=== PATIENT | male | born 1945 | race Caucasian/White ===

== ENCOUNTER 2018-10-24 10:08 | Emergency (ER) | payer MEDICARE ==
[~2018-10-24] VITALS: Ht 177.8 cm; Wt 97.5 kg
[~2018-10-24 10:08] MED LIST: ASPIRIN81 MG PO; ESIDRIX25 MG PO; K DUR10 MEQ PO; KLOR-CON 1010 MEQ PO; LISINOPRIL10 MG PO; METFORMIN HCL1000 MG PO; MULTIVITAMINS1 EAC7 PO; SIMVASTATIN20 MG PO; TAMSULOSIN HCL0.4 MG PO
--- OUTSIDE RECORDS SUMMARY | 2018-10-24 10:11 | XMS REPORT | Summary of Care ---
Author Author [facility] Organization [facility] Address Unknown Phone Unavailable Encounter JARRELL Dacosta(ROLAND) [id number] Date(s): 10/10/16 - 10/10/16 [facility] [address] [place] [address]- [phone] Discharge Diagnosis: Recurrent ventral hernia Discharge Diagnosis: Scabies exposure Discharge Diagnosis: Acute constipation Discharge Disposition: Home or Self Care Attending Physician: Abdelrahman Maldonado MD Vital Signs Most recent to 1 2 oldest [Reference Range]: Height 177.8 cm (10/10/16 12:52 AM) Temperature Oral 98.9 DegF 99.0 DegF [96.4-99.1 DegF] (10/10/16 5:04 AM) (10/10/16 12:52 AM) Blood Pressure 110/68 mmHg 102/69 mmHg [90-140/60-90 mmHg] (10/10/16 5:04 AM) (10/10/16 12:52 AM) Respiratory Rate 18 BRMIN 18 BRMIN [14-20 BRMIN] (10/10/16 5:04 AM) (10/10/16 12:52 AM) Peripheral Pulse 90 bpm 100 bpm Rate [60-100 bpm] (10/10/16 5:04 AM) (10/10/16 12:52 AM) Weight 95.455 kg (10/10/16 12:52 AM) Body Mass Index 30.2 m2 (10/10/16 12:52 AM) Problem List Condition Effective Dates Status Health Status Informant Diabetes(Confirmed) Active HTN (hypertension), Active malignant(Confirmed) Obesity(Confirmed) Active Allergies, Adverse Reactions, Alerts Substance Reaction Severity Status NKDA Active Medications Colace 100 mg oral capsule 100 mg=1 cap, PO, BID, PRN Constipation, # 60 cap, 0 Refill(s), Pharmacy: [facility]/ph armacy #[id number] Start Date: 10/10/16 Status: Ordered permethrin topical 5% cream 1 appl, TOP, ONCE, Bathe then apply head to feet and under nails. 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, Duration: 30 day, Stop date: 11/09/16 1:52: 00 CDT Notes: (Same as: BD Posiflush) Start Date: 10/10/16 Stop Date: 10/10/16 Status: Discontinued Results ELECTROLYTES Most recent to 1 oldest [Reference Range]: Sodium Lvl [135-145 134 mEq/L mEq/L] *LOW* (10/10/16 3:27 AM) Potassium Lvl 3.8 mEq/L [3.5-5.1 mEq/L] (10/10/16 3:27 AM) Chloride Lvl [95-109 97 mEq/L mEq/L] (10/10/16 3:27 AM) CO2 [24-32 mEq/L] 24 mEq/L (10/10/16 3:27 AM) AGAP [10.0-20.0 16.8 mEq/L mEq/L] (10/10/16 3:27 AM) CHEM PANEL Most recent to 1 oldest [Reference Range]: Creatinine Lvl 1.30 mg/dL [0.50-1.40 mg/dL] (10/10/16 3:27 AM) eGFR 55 mL/min/1.73m2 1 *NA* (10/10/16 3:27 AM) BUN [7-22 mg/dL] 15 mg/dL (10/10/16 3:27 AM) B/C Ratio [6-25] 12 (10/10/16 3:27 AM) Glucose Lvl [70-99 334 mg/dL mg/dL] *HI* (10/10/16 3:27 AM) Total Protein 8.0 g/dL [6.4-8.4 g/dL] (10/10/16 3:27 AM) Albumin Lvl [3.5-5.0 2.8 g/dL g/dL] *LOW* (10/10/16 3:27 AM) Globulin [2.7-4.2 5.2 g/dL g/dL] *HI* (10/10/16 3:27 AM) A/G Ratio [0.7-1.6] 0.5 *LOW* (10/10/16 3:27 AM) Calcium Lvl 8.6 mg/dL [8.5-10.5 mg/dL] (10/10/16 3:27 AM) ALT [0-65 unit/L] 31 unit/L (10/10/16 3:27 AM) AST [0-37 unit/L] 25 unit/L (10/10/16 3:27 AM) Alk Phos [39-136 210 unit/L unit/L] *HI* (10/10/16 3:27 AM) Bili Total [0.2-1.3 0.6 mg/dL mg/dL] (10/10/16 3:27 AM) Amylase Lvl [25-115 34 unit/L unit/L] (10/10/16 3:27 AM) Lipase Lvl [73-393 161 unit/L unit/L] (10/10/16 3:27 AM) 1Result Comment: The eGFR is calculated using the CKD-EPI formula. In most young, healthy individuals the eGFR will be >90 mL/min/1.73m2. The eGFR declines with age. An eGFR of 60-89 may be normal in some populations, particularly the elderly, for whom the CKD-EPI formula has not been extensively validated. Use of the eGFR is not recommended in the following populations: Individuals with unstable creatinine concentrations, including patients and those with serious co-morbid conditions. Patients with extremes in muscle mass or diet. The data above are obtained from the National Kidney Disease Education Program ( NKDEP) which additionally recommends that when the eGFR is used in patients with extremes of body mass index for purposes of drug dosing, the eGFR should be mul tiplied by the estimated BMI. CARDIAC ENZYMES Most recent to 1 oldest [Reference Range]: Troponin-I <0.02 ng/mL [0.00-0.40 ng/mL] (2/21/17 3:27 AM) URINE AND STOOL Most recent to 1 oldest [Reference Range]: UA Turbidity [Clear] Clear (10/10/16 3:46 AM) UA Color Meena *NA* (10/10/16 3:46 AM) UA pH [5.0-8.0] 5.0 (10/10/16 3:46 AM) UA Spec Grav 1.027 [<=1.030] (10/10/16 3:46 AM) UA Glucose [Negative 50 mg/dL mg/dL] *ABN* (10/10/16 3:46 AM) UA Blood [Negative] Small *ABN* (10/10/16 3:46 AM) UA Ketones [Negative Negative mg/dL mg/dL] *NA* (10/10/16 3:46 AM) UA Protein [Negative Negative mg/dL mg/dL] (10/10/16 3:46 AM) UA Urobilinogen 4.0 mg/dL [0.1-1.0 mg/dL] *HI* (10/10/16 3:46 AM) UA Bili [Negative] Negative *NA* (10/10/16 3:46 AM) UA Leuk Est Negative [Negative] (10/10/16 3:46 AM) UA Nitrite Negative [Negative] (10/10/16 3:46 AM) UA WBC [0-5 /HPF] 5 /HPF (10/10/16 3:46 AM) UA RBC [0-2 /HPF] 13 /HPF *HI* (10/10/16 3:46 AM) UA Sq Epi [Few /LPF] Occasional /LPF *NA* (10/10/16 3:46 AM) HEMATOLOGY Most recent to 1 oldest [Reference Range]: WBC [3.7-10.4 K/CMM] 7.6 K/CMM (10/10/16 3:27 AM) RBC [4.70-6.10 4.40 M/CMM M/CMM] *LOW* (10/10/16 3:27 AM) Hgb [14.0-18.0 g/dL] 12.3 g/dL *LOW* (10/10/16 3:27 AM) Hct [42.0-54.0 %] 37.3 % *LOW* (10/10/16 3:27 AM) MCV [80.0-94.0 fL] 84.8 fL (10/10/16 3:27 AM) MCH [27.0-31.0 pg] 27.9 pg (10/10/16 3:27 AM) MCHC [32.0-36.0 32.9 g/dL g/dL] (10/10/16 3:27 AM) RDW [11.5-14.5 %] 16.5 % *HI* (10/10/16 3:27 AM) Platelet [133-450 215 K/CMM K/CMM] (10/10/16 3:27 AM) MPV [7.4-10.4 fL] 7.5 fL (10/10/16 3:27 AM) Segs [45.0-75.0 %] 58.9 % (10/10/16 3:27 AM) Lymphocytes 28.5 % [20.0-40.0 %] (10/10/16 3:27 AM) Monocytes [2.0-12.0 11.4 % %] (10/10/16 3:27 AM) Eosinophils [0.0-4.0 0.5 % %] (10/10/16 3:27 AM) Basophils [0.0-1.0 0.7 % %] (10/10/16 3:27 AM) Segs-Bands # 4.5 K/CMM [1.5-8.1 K/CMM] (10/10/16 3:27 AM) Lymphocytes # 2.2 K/CMM [1.0-5.5 K/CMM] (10/10/16 3:27 AM) Monocytes # [0.0-0.8 0.9 K/CMM K/CMM] *HI* (10/10/16 3:27 AM) Basophils # [0.0-0.2 0.1 K/CMM K/CMM] (10/10/16 3:27 AM) Immunizations No data available for this section Procedures Procedure Date Related Diagnosis Body Site Appendectomy Closed reduction of fracture of arm Tonsillectomy Social History Social History Type Response Alcohol Current, Frequency: 1-2 times per week. Smoking Status Former smoker; Started [age] age: 10.0; Exposure to Tobacco Smoke None; Other Tobacco Frequency Pateint Dips; Cigarette Smoking Last 365 Days No; Reg Smoking Cessation Counseling No Assessment and Plan No data available for this section
--- OUTSIDE RECORDS SUMMARY | 2018-10-24 10:11 | XMS REPORT | Summary of Care ---
Author Author [facility] Organization [facility] Address Unknown Phone Unavailable Encounter JARRELL Dacosta(ROLAND) [id number] Date(s): 12/13/16 - 12/13/16 [facility] [address] [place] [address]- [phone] Discharge Disposition: Home or Self Care Attending Physician: Pb Roberts MD Referring Physician: Pb Roberts MD Vital Signs 1 2 3 Most recent to oldest [Reference Range]: 177.8 cm (12/08/16 2:13 PM) Height 97.7 DegF (12/08/16 2:13 PM) Temperature Oral [96.4-99.1 DegF] 130/74 mmHg (12/13/16 10:00 AM) 97/65 mmHg (12/13/16 9:45 AM) 106/69 mmHg (12/13/16 9:30 AM) Blood Pressure [90-140/60-90 mmHg] 19 BRMIN (12/13/16 9:30 AM) 16 BRMIN (12/13/16 9:15 AM) 18 BRMIN (12/13/16 9:00 AM) Respiratory Rate [14-20 BRMIN] 92 bpm (12/08/16 2:13 PM) Peripheral Pulse Rate [60-100 bpm] 90.909 kg (12/08/16 2:13 PM) Weight 28.76 m2 (12/08/16 2:13 PM) Body Mass Index Problem List Condition Effective Dates Status Health Status Informant Diabetes(Confirmed) Active HTN (hypertension), Active malignant(Confirmed) Hypercholesteremia(C Active onfirmed) Obesity(Confirmed) Active Allergies, Adverse Reactions, Alerts Substance Reaction Severity Status NKDA Active Medications acetaminophen (ANES) Route: IV, Drug form: INJ, ONCE, Stop date: 12/13/16 8:30:00 CDT Start Date: 12/13/16 Stop Date: 12/13/16 Status: Completed albuterol-ipratropium 2.5-0.5 mg inhalation solution 3 mL, Route: NEB, Dosing Weight 90.909, kg, ONCE, STAT, Start date: 12/13/16 7:3 0:00 CDT, Stop date: 12/13/16 7:30:00 CDT Start Date: 12/13/16 Stop Date: 12/13/16 Status: Discontinued Ancef 2 gm, 100 mL, Route: IVPB, Drug form: INJ, ONCE, Dosing Weight 90.909, kg, Start date: 12/08/16 14:14:00 CDT, Duration: 1 doses or times, Stop date: 12/08/16 14 :14:00 CDT, Surgical Prophylaxis Only; For patients < 120 kg Notes: Same as: Ancef Start Date: 12/08/16 Stop Date: 12/08/16 Status: Ordered ceFAZolin (ANES) Route: IV, Drug form: INJ, ONCE, Stop date: 12/13/16 8:30:00 CDT Start Date: 12/13/16 Stop Date: 12/13/16 Status: Completed Colace 100 mg oral capsule 100 mg=1 cap, PO, BID, PRN Constipation, # 20 cap, 0 Refill(s), [id number] Start Date: 12/13/16 Status: Ordered dexamethasone (ANES) Route: IV, Drug form: INJ, ONCE, Stop date: 12/13/16 9:00:00 CDT Start Date: 12/13/16 Stop Date: 12/13/16 Status: Completed ePHEDrine (ANES) Route: IV, Drug form: INJ, ONCE, Stop date: 12/13/16 8:55:00 CDT Start Date: 12/13/16 Stop Date: 12/13/16 Status: Completed fentaNYL (ANES) Route: IV, Drug form: INJ, ONCE, Stop date: 12/13/16 8:25:00 CDT Start Date: 12/13/16 Stop Date: 12/13/16 Status: Completed glycopyrrolate (ANES) Route: IV, Drug form: INJ, ONCE, Stop date: 12/13/16 9:00:00 CDT Start Date: 12/13/16 Stop Date: 12/13/16 Status: Completed Lactated Ringers Injection IV 1000 mL 1,000 mL, Rate: 25 ml/hr, Infuse over: 40 hr, Route: IV, Dosing Weight 90.909 kg , Total Volume: 1,000, Start date: 12/13/16 7:30:00 CDT, Duration: 30 day, Stop date: 01/12/17 7:29:00 CDT Start Date: 12/13/16 Stop Date: 12/13/16 Status: Discontinued lidocaine (ANES) Route: IV, Drug form: INJ, ONCE, Stop date: 12/13/16 8:25:00 CDT Start Date: 12/13/16 Stop Date: 12/13/16 Status: Completed LR 1000 mL INJ (ANES) Route: IV, Total Volume: 1,000, Start date: 12/13/16 7:30:00 CDT, Stop date: 8:30:00 CDT Start Date: 12/13/16 Stop Date: 12/13/16 Status: Completed neostigmine (ANES) Route: IV, Drug form: INJ, ONCE, Stop date: 12/13/16 9:00:00 CDT Start Date: 12/13/16 Stop Date: 12/13/16 Status: Completed ondansetron (ANES) Route: IV, Drug form: INJ, ONCE, Stop date: 12/13/16 9:00:00 CDT Start Date: 12/13/16 Stop Date: 12/13/16 Status: Completed oxyCODONE 5 mg oral tablet 10 mg, Route: PO, Drug form: TAB, ONCE, Dosing Weight 90.909, kg, PRN Pain Score 4-6, Start date: 12/13/16 9:42:00 CDT Start Date: 12/13/16 Stop Date: 12/13/16 Status: Completed propofol (ANES) Route: IV, Drug form: INJ, ONCE, Stop date: 12/13/16 8:25:00 CDT Start Date: 12/13/16 Stop Date: 12/13/16 Status: Completed rocuronium (ANES) Route: IV, Drug form: INJ, ONCE, Stop date: 12/13/16 8:25:00 CDT Start Date: 12/13/16 Stop Date: 12/13/16 Status: Completed Tylenol with Codeine #3 oral tablet 1 tab, PO, Q6H, PRN pain, X 7 day, # 28 tab, 0 Refill(s) Start Date: 12/13/16 Stop Date: 12/20/16 Status: Ordered Results ELECTROLYTES Most recent to 1 oldest [Reference Range]: Sodium Lvl [135-145 137 mEq/L mEq/L] (12/08/16 2:28 PM) Potassium Lvl 3.7 mEq/L [3.5-5.1 mEq/L] (12/08/16 2:28 PM) Chloride Lvl [95-109 102 mEq/L mEq/L] (12/08/16 2:28 PM) CO2 [24-32 mEq/L] 25 mEq/L (12/08/16 2:28 PM) AGAP [10.0-20.0 13.7 mEq/L mEq/L] (12/08/16 2:28 PM) CHEM PANEL Most recent to 1 oldest [Reference Range]: Creatinine Lvl 1.10 mg/dL [0.50-1.40 mg/dL] (12/08/16 2:28 PM) eGFR 68 mL/min/1.73m2 1 *NA* (12/08/16 2:28 PM) BUN [7-22 mg/dL] 22 mg/dL (12/08/16 2:28 PM) B/C Ratio [6-25] 20 (12/08/16 2:28 PM) Glucose Lvl [70-99 151 mg/dL mg/dL] *HI* (12/08/16 2:28 PM) Total Protein 8.3 g/dL [6.4-8.4 g/dL] (12/08/16 2:28 PM) Albumin Lvl [3.5-5.0 3.8 g/dL g/dL] (12/08/16 2:28 PM) Globulin [2.7-4.2 4.5 g/dL g/dL] *HI* (12/08/16 2:28 PM) A/G Ratio [0.7-1.6] 0.8 (12/08/16 2:28 PM) Calcium Lvl 9.8 mg/dL [8.5-10.5 mg/dL] (12/08/16 2:28 PM) ALT [0-65 unit/L] 26 unit/L (12/08/16 2:28 PM) AST [0-37 unit/L] 21 unit/L (12/08/16 2:28 PM) Alk Phos [39-136 76 unit/L unit/L] (12/08/16 2:28 PM) Bili Total [0.2-1.3 0.5 mg/dL mg/dL] (12/08/16 2:28 PM) 1Result Comment: The eGFR is calculated using [...] be mul tiplied by the estimated BMI. HEMATOLOGY Most recent to 1 oldest [Reference Range]: WBC [3.7-10.4 K/CMM] 9.9 K/CMM (12/08/16 2:28 PM) RBC [4.70-6.10 5.21 M/CMM M/CMM] (12/08/16 2:28 PM) Hgb [14.0-18.0 g/dL] 15.0 g/dL (12/08/16 2:28 PM) Hct [42.0-54.0 %] 44.2 % (12/08/16 2:28 PM) MCV [80.0-94.0 fL] 85.0 fL (12/08/16 2:28 PM) MCH [27.0-31.0 pg] 28.8 pg (12/08/16 2:28 PM) MCHC [32.0-36.0 33.9 g/dL g/dL] (12/08/16 2:28 PM) RDW [11.5-14.5 %] 15.7 % *HI* (12/08/16 2:28 PM) Platelet [133-450 239 K/CMM K/CMM] (12/08/16 2:28 PM) MPV [7.4-10.4 fL] 7.3 fL *LOW* (12/08/16 2:28 PM) Segs [45.0-75.0 %] 45.4 % (12/08/16 2:28 PM) Lymphocytes 45.3 % [20.0-40.0 %] *HI* (12/08/16 2:28 PM) Monocytes [2.0-12.0 7.8 % %] (12/08/16 2:28 PM) Eosinophils [0.0-4.0 0.8 % %] (12/08/16 2:28 PM) Basophils [0.0-1.0 0.7 % %] (12/08/16 2:28 PM) Segs-Bands # 4.5 K/CMM [1.5-8.1 K/CMM] (12/08/16 2:28 PM) Lymphocytes # 4.5 K/CMM [1.0-5.5 K/CMM] (12/08/16 2:28 PM) Monocytes # [0.0-0.8 0.8 K/CMM K/CMM] (12/08/16 2:28 PM) Eosinophils # 0.1 K/CMM [0.0-0.5 K/CMM] (12/08/16 2:28 PM) Basophils # [0.0-0.2 0.1 K/CMM K/CMM] (12/08/16 2:28 PM) Immunizations No data available for this section Procedures Procedure Date Related Diagnosis Body Site Appendectomy Closed reduction of fracture of arm Colonoscopy Cystectomy Tonsillectomy Social History Social History Type Response Alcohol Current, Frequency: 1-2 times per week. Smoking Status Former smoker; Type: Chewing tobacco; Started at age: 10.0; Exposure to Tobacco Smoke None; Other Tobacco Frequency tobacco chewer; Cigarette Smoking Last 365 Days No; Reg Smoking Cessation Counseling No Assessment and Plan Extracted from: Title: Clinical Document Author: Pb Roberts MD Date: 12/13/16 DATE OF PROCEDURE: 12/13/2016. PREOPERATIVE DIAGNOSIS: 1. Gallbladder polyps. 2. Abdominal wall mass. POSTOPERATIVE DIAGNOSIS: 1. Gallbladder polyps. 2. Abdominal wall mass. TECHNICAL PROCEDURE PERFORMED: 1. Laparoscopic cholecystectomy. 2. Excision abdominal wall mass approximately 5 x 7 cm mention in the subcutaneous plane. SURGEON: Pb Roberts M.D. ANESTHESIA: General endotracheal. SURGICAL WOUND CLASSIFICATION: Clean contaminate. OPERATIVE TIME: 45 minutes. ESTIMATED BLOOD LOSS: Minimal. FLUID REPLACEMENT: Per anesthesia. SPECIMENS SENT FOR PATHOLOGY: Gallbladder. COMPLICATIONS: None. FINDINGS: 1. 5 x 7 cm abdominal wall mass. 2. Well-visualized critical view. CONDITION: To recovery, stable. POSTOPERATIVE PLAN: To the floor INDICATIONS: A 7-year-old gentleman that presented to my general surgery clinic with abdominal pain. At this time, the history and physical as well as laboratory studies was consistent with diagnosis of abdominal wall mass as well as gallbladder polyps, therefore, the option of laparoscopic versus open cholecystectomy with excision of the abdominal wall mass was offered to the patient. Risks and benefits of the procedure were explained and the patient voiced understanding and consented to procedure. OPERATIVE NARRATIVE: Patient was taken the operating room, placed on the operating table, intubated by anesthesia. The abdomen was prepped and draped in the usual sterile fashion. A timeout was called and the correct patient, as well as procedure was verified. The patient had SCDs on for thromboembolic prophylaxis and received antibiotics within 1 hour of the incision. The abdominal wall mass was identified in the supraumbilical region, 0.5% Marcaine was infused followed by incision over the mass. The mass was dissected out from the underlying subcutaneous tissue with a combination of sharp as well as blunt dissection to remove it from the subcutaneous plane measuring approximately 5 x 7 cm dimension. It was sent to the back table for permanent pathology. The umbilicus and this was then identified, and the fascia was grasped with a Valentín clamp and a Veress was placed, confirmed with a positive saline drop test. Pneumoperitoneum was achieved with CO2 gas up to 15 mmHg. A 1-cm trocar was placed in the umbilical incision. The patient was placed in reverse Trendelenburg position airplaned to the left; 0.5 cm trocars were introduced in the epigastrium, right upper quadrant right periumbilical regions under direct visualization. The gallbladder was identified. It was grasped at the fundus and retracted to the head, infundibulum was identified, grasped and retracted towards the legs, exposing the triangle of Calot. The cystic duct was identified, it was dissected out from all surrounding structures, clipped proximally 3 times, distally once, transected in between. Of note, a well visualized critical view was identified; therefore we bypassed cholangiogram. The dissection continued to identify the cystic artery, it was dissected out from all surrounding structures, clipped proximally twice, distally once, and transected in between. The gallbladder was then elevated off the liver bed using electrocautery. It was placed in the Endopouch bag and removed from the abdomen through the umbilical port. The liver bed was inspected, all residual bleeding was identified and controlled. The abdomen was irrigated with copious amounts water until clear return was achieved. The patient was placed flat and all residual irrigation was suctioned out. The pneumoperitoneum was decompressed and the fascia at the umbilical port was closed using 0 Vicryl in a [id number] manner, and the skin was closed using 4-0 Monocryl in running subcuticular manner. The skin and three 5-mm ports were closed using 4-0 Monocryl in simple U-stitch manner. The patient was extubated in the operating room and transferred to recovery in stable condition. All instrument and laparotomy counts were correct.
--- OUTSIDE RECORDS SUMMARY | 2018-10-24 10:11 | XMS REPORT | Continuity of Care Document ---
Author Author [facility] Interface Address Unknown Phone Unavailable Problems Problem Status Onset Date Classification Date Reported Comments Source UNK Active 12/05/2016 [facility] DX: R10.0=ACUTE ABDOMEN Active 10/13/2016 [facility] Discharge Diagnosis: Recurrent ventral hernia 10/10/2016 10/13/2016 [facility] Discharge Diagnosis: Scabies exposure 10/10/2016 10/13/2016 [facility] Discharge Diagnosis: Acute constipation 10/10/2016 10/13/2016 [facility] ABD PAIN Active 10/09/2016 [facility] R10.10 UPPER ABDOMINAL PAIN, UNSPECIFIED Active 05/20/2015 [facility] Discharge Diagnosis: Acute arthritis 10/10/2014 10/12/2014 [facility] RIGHT WRIST PAIN Active 10/10/2014 [facility] Diabetes Active Problem 12/16/2016 [facility] HTN , 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</span>) Active Problem 12/16/2016 [facility] Obesity Active Problem 12/16/2016 [facility] Hypercholesteremia Active Problem 12/16/2016 [facility] UPPER ABDOMINAL PAIN, UNSPECIFIED Active [facility] ACUTE ABDOMEN Active [facility] LOCALIZED SWELLING, MASS AND LUMP, TRUNK Active [facility] CALCULUS OF GALLBLADDER W/O CHOLECYSTITI Active [facility] Medications Medication Details Route Status Patient Instructions Ordering Provider Order Date Source Oxycodone Hydrochloride 5 MG Oral Tablet 10 mg, Route: PO, Drug form: TAB, ONCE, Dosing Weight 90.909, kg, PRN Pain Score 4-6, Start date: 12/13/16 9:42:00 CDT Inactive 12/13/2016 [facility] ondansetron (ANES) Route: IV, Drug form: INJ, ONCE, Stop date: 12/13/16 9:00:00 CDT Inactive 12/13/2016 [facility] glycopyrrolate (ANES) Route: IV, Drug form: INJ, ONCE, Stop date: 12/13/16 9:00:00 CDT Inactive 12/13/2016 [facility] dexamethasone (ANES) Route: IV, Drug form: INJ, ONCE, Stop date: 12/13/16 9:00:00 CDT Inactive 12/13/2016 [facility] neostigmine (ANES) Route: IV, Drug form: INJ, ONCE, Stop date: 12/13/16 9:00:00 CDT Inactive 12/13/2016 [facility] ePHEDrine (ANES) Route: IV, Drug form: INJ, ONCE, Stop date: 12/13/16 8:55:00 CDT Inactive 12/13/2016 [facility] Docusate Sodium 100 MG Oral Capsule [Colace] 100 mg=1 cap, PO, BID, PRN Constipation, # 20 cap, 0 Refill(s), Pharmacy: [facility]/pharmacy #[id number] Active 12/13/2016 [facility] Acetaminophen 300 MG / Codeine Phosphate 30 MG Oral Tablet [Tylenol with Codeine #3] 1 tab, PO, Q6H, PRN pain, X 7 day, # 28 tab, 0 Refill(s) Active 12/13/2016 [facility] acetaminophen (ANES) Route: IV, Drug form: INJ, ONCE, Stop date: 12/13/16 8:30:00 CDT Inactive 12/13/2016 [facility] ceFAZolin (ANES) Route: IV, Drug form: INJ, ONCE, Stop date: 12/13/16 8:30:00 CDT Inactive 12/13/2016 [facility] lidocaine (ANES) Route: IV, Drug form: INJ, ONCE, Stop date: 12/13/16 8:25:00 CDT Inactive 12/13/2016 [facility] propofol (ANES) Route: IV, Drug form: INJ, ONCE, Stop date: 12/13/16 8:25:00 CDT Inactive 12/13/2016 [facility] fentaNYL (ANES) Route: IV, Drug form: INJ, ONCE, Stop date: 12/13/16 8:25:00 CDT Inactive 12/13/2016 [facility] rocuronium (ANES) Route: IV, Drug form: INJ, ONCE, Stop date: 12/13/16 8:25:00 CDT Inactive 12/13/2016 [facility] Albuterol 0.833 MG/ML / Ipratropium [place] 0.167 MG/ML Inhalant Solution 3 mL, Route: NEB, Dosing Weight 90.909, kg, ONCE, STAT, Start date: 12/13/16 7:30:00 CDT, Stop date: 12/13/16 7:30:00 CDT Inactive 12/13/2016 [facility] Calcium Chloride 0.0014 MEQ/ML / Potassium Chloride 0.004 MEQ/ML / Sodium Chloride 0.103 MEQ/ML / Sodium Lactate 0.028 MEQ/ML Injectable Solution 1,000 mL, Rate: 25 ml/hr, Infuse over: 40 hr, Route: IV, Dosing Weight 90.909 kg, Total Volume: 1,000, Start date: 12/13/16 7:30:00 CDT, Duration: 30 day, Stop date: 01/12/17 7:29:00 CDT Inactive 12/13/2016 [facility] LR 1000 mL INJ (ANES) Route: IV, Total Volume: 1,000, Start date: 12/13/16 7:30:00 CDT, Stop date: 12/13/16 8:30:00 CDT Inactive 12/13/2016 [facility] Ancef 2 gm, 100 mL, Route: IVPB, Drug form: INJ, ONCE, Dosing Weight 90.909, kg, Start date: 12/08/16 14:14:00 CDT, Duration: 1 doses or times, Stop date: 12/08/16 14:14:00 CDT, Surgical Prophylaxis Only; For patients Notes: Same as: Ancef Inactive 12/08/2016 [facility] Docusate Sodium 100 MG Oral Capsule [Colace] 100 mg=1 cap, PO, BID, PRN Constipation, # 60 cap, 0 Refill(s), Pharmacy: [facility]/pharmacy #[id number] Active 10/10/2016 [facility] Permethrin 50 MG/ML Topical Cream 1 appl, TOP, ONCE, Bathe then apply head to feet and under nails. Remove by washing after 8-12 hours., # 60 gm, 1 Refill(s), Pharmacy: [facility]/pharmacy #[id number] Active 10/10/2016 [facility] Saline Flush 0.9% 10 mL, Route: IVP, Drug Form: INJ, Dosing Weight 107.273, kg, PRN, PRN Line Flush, Start date: 10/10/16 0:53:00 DESKTOP ANALYST, Duration: 30 day, Stop date: 11/09/16 1:52:00 CDTNotes: (Same as: BD Posiflush) Inactive 10/10/2016 [facility] tramadol hydrochloride 50 MG Oral Tablet 50 mg=1 tab, PO, Q4H, as needed for pain, # 24 tab, 0 Refill(s) Active 10/11/2014 [facility] Ibuprofen 800 mg, Route: PO, Drug form: TAB, ONCE, Dosing Weight 100, kg, Priority: STAT, Start date: 10/10/14 19:52:00, Stop date: 10/10/14 19:52:00 Inactive 10/11/2014 [facility] Allergies, Adverse Reactions, Alerts Substance Category Reaction Severity Reaction type Status Date Reported Comments Source Immunizations Immunization Date Given Site Status Last Updated Comments Source Results Order Name Results Value Reference Range Date Interpretation Comments Source CHEM PANEL eGFR 68 mL/min/1.73m2 12/08/2016 Result Comment: The eGFR is calculated using the [...] from the National Kidney Disease Education Program (NKDEP) which additionally recommends that when the eGFR is used in patients with extremes of body mass index for purposes of drug dosing, the eGFR should be multiplied by the estimated BMI. [facility] CHEM PANEL ALT 26 unit/L 0 - 65 12/08/2016 [facility] CHEM PANEL Albumin Lvl 3.8 g/dL 3.5 - 5.0 12/08/2016 [facility] CHEM PANEL Alk Phos 76 unit/L 39 - 136 12/08/2016 [facility] CHEM PANEL AST 21 unit/L 0 - 37 12/08/2016 [facility] CHEM PANEL Total Protein 8.3 g/dL 6.4 - 8.4 12/08/2016 [facility] CHEM PANEL Glucose Lvl 151 mg/dL 70 - 99 12/08/2016 [facility] CHEM PANEL Chloride Lvl 102 meq/L 95 - 109 12/08/2016 [facility] CHEM PANEL Calcium Lvl 9.8 mg/dL 8.5 - 10.5 12/08/2016 [facility] CHEM PANEL CO2 25 meq/L 24 - 32 12/08/2016 [facility] CHEM PANEL Potassium Lvl 3.7 meq/L 3.5 - 5.1 12/08/2016 [facility] CHEM PANEL BUN 22 mg/dL 7 - 22 12/08/2016 [facility] CHEM PANEL Sodium Lvl 137 meq/L 135 - 145 12/08/2016 [facility] CHEM PANEL Creatinine Lvl 1.10 mg/dL 0.50 - 1.40 12/08/2016 [facility] CHEM PANEL Bili Total 0.5 mg/dL 0.2 - 1.3 12/08/2016 [facility] CHEM PANEL AGAP 13.7 meq/L 10.0 - 20.0 12/08/2016 [facility] CHEM PANEL A/G Ratio 0.8 0.7 - 1.6 12/08/2016 [facility] CHEM PANEL Globulin 4.5 g/dL 2.7 - 4.2 12/08/2016 [facility] CHEM PANEL B/C Ratio 20 6 - 25 12/08/2016 [facility] HEMATOLOGY RDW 15.7 % 11.5 - 14.5 12/08/2016 [facility] HEMATOLOGY Platelet 239 K/CMM 133 - 450 12/08/2016 [facility] HEMATOLOGY MPV 7.3 fL 7.4 - 10.4 12/08/2016 [facility] HEMATOLOGY MCV 85.0 fL 80.0 - 94.0 12/08/2016 [facility] MCHC 33.9 g/dL 32.0 - 36.0 12/08/2016 [facility] MCH 28.8 pg 27.0 - 31.0 12/08/2016 [facility] HEMATOLOGY Hct 44.2 % 42.0 - 54.0 12/08/2016 [facility] HEMATOLOGY RBC 5.21 M/CMM 4.70 - 6.10 12/08/2016 [facility] HEMATOLOGY Hgb 15.0 g/dL 14.0 - 18.0 12/08/2016 [facility] HEMATOLOGY WBC 9.9 K/CMM 3.7 - 10.4 12/08/2016 [facility] HEMATOLOGY Eosinophils # 0.1 K/CMM 0.0 - 0.5 12/08/2016 [facility] HEMATOLOGY Basophils # 0.1 K/CMM 0.0 - 0.2 12/08/2016 [facility] HEMATOLOGY Monocytes # 0.8 K/CMM 0.0 - 0.8 12/08/2016 [facility] Lymphocytes # 4.5 K/CMM 1.0 - 5.5 12/08/2016 [facility] Segs-Bands # 4.5 K/CMM 1.5 - 8.1 12/08/2016 [facility] Lymphocytes 45.3 % 20.0 - 40.0 12/08/2016 [facility] HEMATOLOGY Segs 45.4 % 45.0 - 75.0 12/08/2016 [facility] HEMATOLOGY Eosinophils 0.8 % 0.0 - 4.0 12/08/2016 [facility] Monocytes 7.8 % 2.0 - 12.0 12/08/2016 [facility] HEMATOLOGY Basophils 0.7 % 0.0 - 1.0 12/08/2016 [facility] Abdomen complete US Abdomen complete US Patient Name: DIMITRI MULLIGAN : 1945; Age: 70 years Male MR: [id number] Study: Abdomen complete US 10/17/2016 6:46 AM DESKTOP ANALYST CLINICAL INDICATION: R10.0 Acute abdomen ADDITIONAL HISTORY: None COMPARISON: CT on 05/26/2015 TECHNIQUE: Grayscale and limited color sonographic evaluation of the abdomen was performed using standard technique. FINDINGS: Liver: The liver demonstrates increased echogenicity and is normal in size, measuring 18.4 cm. No focal liver lesion identified. Gallbladder: Tiny 2-3 mm gallbladder polyp. No pericholecystic fluid or gallbladder wall thickening. Biliary: No intra or extrahepatic biliary ductal dilatation. The common bile duct measures 0.3 cm. Pancreas: The visualized portions of the pancreatic body are unremarkable. Spleen: The spleen is normal in echogenicity and in size, measuring 12.9 cm. Kidney: The right kidney measures 11.8 cm in length. The left kidney measures 12.4 cm in length. Normal renal echogenicity and contour without evidence of hydronephrosis. Anechoic 3.5 cm cyst within the inferior left kidney. Anechoic 1.3 cm cyst within the superior left kidney. Multiple echogenic and shadowing stones within the left kidney. Aorta and IVC: The visualized portions are unremarkable. No evidence of free fluid. IMPRESSION: Nonobstructive left nephrolithiasis. Two left renal cysts. Hepatic steatosis. Tiny gallbladder polyp. SL: [id number] 10/17/2016 - - Read by: Jefferson Harrison MD Dictated Date/time: 10/17/16 08:21 Electronically Signed by: Jefferson Harrison MD 10/17/16 08:24 FINAL REPORT [facility] URINE AND STOOL UA Color Meena 10/10/2016 [facility] URINE AND STOOL UA WBC 5 /HPF 0 - 5 10/10/2016 [facility] URINE AND STOOL UA RBC 13 /HPF 0 - 2 10/10/2016 [facility] URINE AND STOOL UA Sq Epi Occasional /LPF Few /LPF 10/10/2016 [facility] URINE AND STOOL UA Nitrite Negative (10/10/16 3:46 AM) Negative 10/10/2016 [facility] URINE AND STOOL UA Leuk Est Negative (10/10/16 3:46 AM) Negative 10/10/2016 [facility] URINE AND STOOL UA Urobilinogen 4.0 mg/dL 0.1 - 1.0 10/10/2016 [facility] URINE AND STOOL UA Blood Small *ABN* (10/10/16 3:46 AM) Negative 10/10/2016 [facility] URINE AND STOOL UA Spec Grav 1.027 <=1.030 10/10/2016 [facility] URINE AND STOOL UA Turbidity Clear (10/10/16 3:46 AM) Clear 10/10/2016 [facility] URINE AND STOOL UA Ketones Negative mg/dL Negative mg/dL 10/10/2016 [facility] URINE AND STOOL UA Bili Negative *NA* (10/10/16 3:46 AM) Negative 10/10/2016 [facility] URINE AND STOOL UA Protein Negative mg/dL Negative mg/dL 10/10/2016 [facility] URINE AND STOOL UA Glucose 50 mg/dL Negative mg/dL 10/10/2016 [facility] URINE AND STOOL UA pH 5.0 5.0 - 8.0 10/10/2016 [facility] CARDIAC ENZYMES Troponin-I null 0.00 - 0.40 10/10/2016 [facility] CHEM PANEL Lipase Lvl 161 unit/L 73 - 393 10/10/2016 [facility] CHEM PANEL Amylase Lvl 34 unit/L 25 - 115 10/10/2016 [facility] ELECTROLYTES AGAP 16.8 meq/L 10.0 - 20.0 10/10/2016 [facility] ELECTROLYTES A/G Ratio 0.5 0.7 - 1.6 10/10/2016 [facility] ELECTROLYTES B/C Ratio 12 6 - 25 10/10/2016 [facility] ELECTROLYTES Globulin 5.2 g/dL 2.7 - 4.2 10/10/2016 [facility] ELECTROLYTES eGFR 55 mL/min/1.73m2 10/10/2016 Result Comment: The eGFR is calculated using the [...] from the National Kidney Disease Education Program (NKDEP) which additionally recommends that when the eGFR is used in patients with extremes of body mass index for purposes of drug dosing, the eGFR should be multiplied by the estimated BMI. [facility] ELECTROLYTES Bili Total 0.6 mg/dL 0.2 - 1.3 10/10/2016 [facility] ELECTROLYTES Alk Phos 210 unit/L 39 - 136 10/10/2016 [facility] ELECTROLYTES AST 25 unit/L 0 - 37 10/10/2016 [facility] ELECTROLYTES ALT 31 unit/L 0 - 65 10/10/2016 [facility] ELECTROLYTES Calcium Lvl 8.6 mg/dL 8.5 - 10.5 10/10/2016 [facility] ELECTROLYTES Albumin Lvl 2.8 g/dL 3.5 - 5.0 10/10/2016 [facility] Total Protein 8.0 g/dL 6.4 - 8.4 10/10/2016 [facility] ELECTROLYTES CO2 24 meq/L 24 - 32 10/10/2016 [facility] ELECTROLYTES Chloride Lvl 97 meq/L 95 - 109 10/10/2016 [facility] ELECTROLYTES Potassium Lvl 3.8 meq/L 3.5 - 5.1 10/10/2016 [facility] ELECTROLYTES Sodium Lvl 134 meq/L 135 - 145 10/10/2016 [facility] ELECTROLYTES Creatinine Lvl 1.30 mg/dL 0.50 - 1.40 10/10/2016 [facility] ELECTROLYTES Glucose Lvl 334 mg/dL 70 - 99 10/10/2016 [facility] ELECTROLYTES BUN 15 mg/dL 7 - 22 10/10/2016 [facility] HEMATOLOGY Hgb 12.3 g/dL 14.0 - 18.0 10/10/2016 [facility] HEMATOLOGY Hct 37.3 % 42.0 - 54.0 10/10/2016 [facility] WBC 7.6 K/CMM 3.7 - 10.4 10/10/2016 [facility] RBC 4.40 M/CMM 4.70 - 6.10 10/10/2016 [facility] Platelet 215 K/CMM 133 - 450 10/10/2016 [facility] MPV 7.5 fL 7.4 - 10.4 10/10/2016 [facility] MCHC 32.9 g/dL 32.0 - 36.0 10/10/2016 [facility] MCV 84.8 fL 80.0 - 94.0 10/10/2016 [facility] MCH 27.9 pg 27.0 - 31.0 10/10/2016 [facility] RDW 16.5 % 11.5 - 14.5 10/10/2016 [facility] Monocytes 11.4 % 2.0 - 12.0 10/10/2016 [facility] Basophils 0.7 % 0.0 - 1.0 10/10/2016 [facility] Lymphocytes 28.5 % 20.0 - 40.0 10/10/2016 [facility] Segs 58.9 % 45.0 - 75.0 10/10/2016 [facility] Basophils # 0.1 K/CMM 0.0 - 0.2 10/10/2016 [facility] Eosinophils 0.5 % 0.0 - 4.0 10/10/2016 [facility] Monocytes # 0.9 K/CMM 0.0 - 0.8 10/10/2016 [facility] Lymphocytes # 2.2 K/CMM 1.0 - 5.5 10/10/2016 [facility] Segs-Bands # 4.5 K/CMM 1.5 - 8.1 10/10/2016 [facility] Abdomen AP DX Abdomen AP DX Clinical Indication: Constipation Comparison: None FINDINGS: The AP supine view of the abdomen shows a non-obstructive bowel gas pattern with moderate gas and stool in the colon. There is no abnormal dilatation of bowel loops. There is no pneumatosis or mass effect. There are no radiopaque densities noted. There are degenerative changes in the thoracolumbar spine. Soft tissue outlines are unremarkable. IMPRESSION: Unremarkable 1 view abdomen. SL: 82 10/10/2016 - - Read by: Juaquin Zambrano MD Dictated Date/time: 10/10/16 04:12 Electronically Signed by: Juaquin Zambrano MD 10/10/16 04:13 FINAL REPORT [facility] Chest 1view DX Chest 1view DX EXAM: XR CHEST 1 VIEW DATE: 10/10/2016 12:53 AM DESKTOP ANALYST INDICATION: Chest pain. COMPARISON: None Available. TECHNIQUE: A single AP view of the chest was obtained. FINDINGS: No focal consolidation or pneumothorax is identified. The cardiomediastinal silhouette is within normal limits. The costophrenic recesses are sharp and without effusion. Degenerative changes are present in the thoracic spine. IMPRESSION: No acute cardiopulmonary abnormality. SL: [id number] 10/10/2016 - - Read by: Yonatan Do MD Dictated Date/time: 10/10/16 01:07 Electronically Signed by: Yonatan Do MD 10/10/16 01:07 FINAL REPORT [facility] CHEM PANEL eGFR 68 mL/min/1.73m2 05/26/2015 Result Comment: The eGFR is calculated using the [...] from the National Kidney Disease Education Program (NKDEP) which additionally recommends that when the eGFR is used in patients with extremes of body mass index for purposes of drug dosing, the eGFR should be multiplied by the estimated BMI. [facility] CHEM PANEL POC Creatinine 1.1 mg/dL 0.5 - 1.4 05/26/2015 [facility] Abdomen/Pelvis w IV contrast CT Abdomen/Pelvis w IV contrast CT EXAMINATION: CT of the abdomen and pelvis with contrast HISTORY: R10.10 Upper abdominal pain, unspecified COMPARISON: None. DLP: 1846.77 TECHNIQUE: Multiple transaxial images through the abdomen and pelvis were acquired following administration of intravenous contrast material. Oral contrast was administered. Multiplanar reformatted images were performed. FINDINGS: The lung bases are clear bilaterally. Liver, gallbladder, pancreas, spleen, and adrenal glands are unremarkable. No intrahepatic or extra hepatic biliary duct dilatation is seen. Bilateral renal hypodense cysts are seen with largest measuring 3.8 cm in the inferior pole of the left kidney. Diffuse parenchymal atrophy of the left kidney is seen. Multiple calyceal stones throughout the left kidney are seen with largest measuring 1.7 cm in the inferior pole. No obstructing ureteral stones are seen. Bladder is well-distended. Mild prostate enlargement is seen. The visualized hollow viscera are unremarkable. The appendix is not visualized. No intraperitoneal free air, free fluid, or pathologic adenopathy is seen. Arterial calcifications are noted. Superficial soft tissues are unremarkable. Degenerative changes of the lumbar spine are seen. Bilateral L5 pars interarticularis defects are noted. IMPRESSION: 1. No acute intra-abdominal/pelvic abnormality. 2. Nonobstructive left nephrolithiasis. SL: 16 05/26/2015 - - Read by: Toni Jeong MD Dictated Date/time: 05/26/15 10:10 Electronically Signed by: Toni Jeong MD 05/26/15 10:14 FINAL REPORT [facility] Vital Signs Vital Sign Value Date Comments Source Systolic (mm Hg) 130 12/13/2016 [facility] Diastolic (mm Hg) 74 12/13/2016 [facility] Systolic (mm Hg) 97 12/13/2016 [facility] Diastolic (mm Hg) 65 12/13/2016 [facility] Systolic (mm Hg) 106 12/13/2016 [facility] Diastolic (mm Hg) 69 12/13/2016 [facility] Respitory Rate 19 12/13/2016 [facility] Respitory Rate 16 12/13/2016 [facility] Respitory Rate 18 12/13/2016 [facility] Heart Rate 92 12/08/2016 [facility] Temperature Oral (F) 97.7 F 12/08/2016 [facility] Weight 90.909 12/08/2016 [facility] BMI Calculated 28.76 12/08/2016 [facility] Height 177.8 cm 12/08/2016 [facility] Heart Rate 90 10/10/2016 [facility] Temperature Oral (F) 98.9 F 10/10/2016 [facility] Respitory Rate 18 10/10/2016 [facility] Systolic (mm Hg) 110 10/10/2016 [facility] Diastolic (mm Hg) 68 10/10/2016 [facility] Temperature Oral (F) 99.0 F 10/10/2016 [facility] Heart Rate 100 10/10/2016 [facility] Respitory Rate 18 10/10/2016 [facility] Systolic (mm Hg) 102 10/10/2016 [facility] Diastolic (mm Hg) 69 10/10/2016 [facility] Weight 95.455 10/10/2016 [facility] Height 177.8 cm 10/10/2016 [facility] BMI Calculated 30.2 10/10/2016 [facility] Heart Rate 78 10/11/2014 [facility] Respitory Rate 20 10/11/2014 [facility] Systolic (mm Hg) 178 10/11/2014 [facility] Diastolic (mm Hg) 89 10/11/2014 [facility] Temperature Oral (F) 99.0 F 10/11/2014 [facility] Heart Rate 78 10/10/2014 [facility] Respitory Rate 22 10/10/2014 [facility] Systolic (mm Hg) 196 10/10/2014 [facility] Diastolic (mm Hg) 96 10/10/2014 [facility] Temperature Oral (F) 99.3 F 10/10/2014 [facility] Height 177.8 cm 10/10/2014 [facility] BMI Calculated 31.63 10/10/2014 [facility] Weight 100 10/10/2014 [facility] Encounters Location Location Details Encounter Type Encounter Number Reason For Visit Attending Provider ADM Date DC Date Status Source [facility] [id number] Abdelrahman Tinajero 10/10/2014 10/11/2014 [facility] Outpatient [id number] Fishman Le 05/26/2015 05/27/2015 [facility] Emergency [id number] Abdelrahman Maldonado 10/10/2016 10/10/2016 [facility] Outpatient [id number] FISHMAN LE 10/13/2016 Active [facility] Outpatient [id number] Fishman Le 10/17/2016 10/18/2016 [facility] Outpatient [id number] FISHMAN LE 10/26/2016 Active [facility] Outpatient [id number] FISHMAN LE 12/05/2016 [facility] Outpatient [id number] FISHMAN LE 12/13/2016 [facility] Day Surgery [id number] Fishman Le 12/13/2016 12/13/2016 [facility] Outpatient [id number] FISHMAN LE 12/26/2016 [facility] Procedures Procedure Code Date Perfomer Comments Source Appendectomy [id number] [facility] Closed reduction of fracture of arm [id number] [facility] Tonsillectomy [id number] [facility] Colonoscopy [id number] [facility] Cystectomy [id number] [facility]
--- OUTSIDE RECORDS SUMMARY | 2018-10-24 10:11 | XMS REPORT | Summary of Care ---
Author Author [facility] Organization [facility] Address Unknown Phone Unavailable Encounter HQ Nadja_nickie(FIN) [id number] Date(s): 10/17/16 - 10/17/[address] [facility] [address] [place] [address]- Discharge Disposition: Home or Self Care Attending Physician: Pb Roberts MD Referring Physician: Pb Roberts MD Vital Signs No data available for this section Problem List Condition Effective Dates Status Health Status Informant Diabetes(Confirmed) Active HTN (hypertension), Active malignant(Confirmed) Obesity(Confirmed) Active Allergies, Adverse Reactions, Alerts Substance Reaction Severity Status NKDA Active Medications No data available for this section Results No data available for this section Immunizations No data available for this section [...]
--- OUTSIDE RECORDS SUMMARY | 2018-10-24 10:11 | XMS REPORT | Summary of Care ---
Author Organization Unknown Address Unknown Phone Unavailable Encounter JARRELL Dacosta(ROLAND) [id number] Date(s): 10/10/14 - 10/10/14 [facility] [address] [place] [address]- Discharge Diagnosis: Acute arthritis Discharge Disposition: Home Physician Attending: Abdelrahman Tinajero MD Vital Signs Most recent to 1 2 oldest [Reference Range]: Height 177.8 cm (10/10/14 5:53 PM) Temperature Oral 99.0 DegF 99.3 DegF [96.4-99.1 DegF] (10/10/14 8:57 PM) *HI* (10/10/14 5:53 PM) Blood Pressure 178/89 mmHg 196/96 mmHg [90-140/60-90 mmHg] *HI* *HI* (10/10/14 8:57 PM) (10/10/14 5:53 PM) Respiratory Rate 20 BRMIN 22 BRMIN [14-20 BRMIN] (10/10/14 8:57 PM) *HI* (10/10/14 5:53 PM) Peripheral Pulse 78 bpm 78 bpm Rate [60-100 bpm] (10/10/14 8:57 PM) (10/10/14 5:53 PM) Weight 100 kg (10/10/14 5:53 PM) Body Mass Index 31.63 m2 (10/10/14 5:53 PM) Problem List Condition Effective Dates Status Health Status Informant Diabetes(Confirmed) Active HTN (hypertension), Active malignant(Confirmed) Allergies, Adverse Reactions, Alerts Substance Reaction Severity Status NKDA Active Medications ibuprofen 800 mg, Route: PO, Drug form: TAB, ONCE, Dosing Weight 100, kg, Priority: STAT, Start date: 10/10/14 19:52:00, Stop date: 10/10/14 19:52:00 Start Date: 10/10/14 Stop Date: 10/10/14 Status: Completed tramadol 50 mg oral tablet 50 mg=1 tab, PO, Q4H, as needed for pain, # 24 tab, 0 Refill(s) Start Date: 10/10/14 Status: Ordered Results No data available for this section Immunizations No data available for this section Procedures No data available for this section Social History Social History Type Response Alcohol Current, Frequency: 1-2 times per week. Smoking Status Former smoker; Exposure to Tobacco Smoke None; Cigarette Smoking Last 365 Days No; Reg Smoking Cessation Counseling No Assessment and Plan No data available for this section
--- OUTSIDE RECORDS SUMMARY | 2018-10-24 10:11 | XMS REPORT | Summary of Care ---
Author Author [facility] Organization [facility] Address Unknown Phone Unavailable Encounter JARRELL Dacosta(ROLAND) [id number] Date(s): 05/26/15 - 05/26/15 [facility] [address] [place] [address]- [phone] Discharge Disposition: Home Attending Physician: Pb Roberts MD Referring Physician: Pb Roberts MD Vital Signs No data available for this section Problem List Condition Effective Dates Status Health Status Informant Diabetes(Confirmed) Active HTN (hypertension), Active malignant(Confirmed) Obesity(Confirmed) Active Allergies, Adverse Reactions, Alerts Substance Reaction Severity Status NKDA Active Medications No data available for this section Results CHEM PANEL Most recent to 1 oldest [Reference Range]: eGFR 68 mL/min/1.73m2 1 *NA* (05/26/15 9:37 AM) POC Creatinine 1.1 mg/dL [0.5-1.4 mg/dL] (05/26/15 9:37 AM) 1Result Comment: The eGFR is calculated [...] be mul tiplied by the estimated BMI. Immunizations No data available for this section [...]
--- OUTSIDE RECORDS SUMMARY | 2018-10-24 10:11 | XMS REPORT | Summary of Care ---
Author Author [facility] Organization [facility] Address Unknown Phone Unavailable Encounter HQ Nadja_nickie(FIN) [phone] Date(s): 10/17/16 - 10/17/16 [facility] [address] [place] [address]- [phone] Discharge Disposition: Home or Self Care Attending [...]
--- NOTE | 2018-10-24 11:22 | NUR ---
PT CHEWING TOBACCO ON RETURN FROM RADIOLOGY AND EDUCATED ABOUT THIS BEING A NON TOBACCO FACILITY
--- NOTE | 2018-10-24 13:52 | Diagnostic Imaging Report ---
Exam: Left foot series; 10/24/2018 at 11:02 AM History: Erythema and edema Comparison: None available Findings: Calcification and spurring of the calcaneus at the insertion of the Achilles tendon is noted. Mild soft tissue edema is present. No fracture or bony erosions. No unusual calcifications. Impression: Spurring of the calcaneus. Signed by: Dr. Mars Cedeño DO on 10/24/2018 1:49 PM
[2018-10-24 14:08] LABS: BASOPHILS # (AUTO) 0.1 (0.0-0.1); BASOPHILS % 0.5 % (0.0-1.0); EOSINOPHILS # (AUTO) 0.1 (0.0-0.4); EOSINOPHILS % 0.6 % (0.0-6.0); HEMATOCRIT 48.4 % (38.2-49.6); HEMOGLOBIN 16.1 g/dL (14.0-18.0); LYMPHOCYTES # (AUTO) 3.6 (1.0-3.2); LYMPHOCYTES % 28.4 % (18.0-39.1); MEAN CORPUSCULAR HEMOGLOBIN 29.8 pg (28-32); MEAN CORPUSCULAR HGB CONC 33.3 g/dL (31-35); MEAN CORPUSCULAR VOLUME 89.6 fL (81-99); MONOCYTES % 7.6 % (4.4-11.3); NEUTROPHILS # (AUTO) 7.9 (2.1-6.9); NEUTROPHILS % 62.6 % (38.7-80.0); PLATELET COUNT 320 x10e3/uL (140-360); RED CELL DISTRIBUTION WIDTH 12.4 % (11.7-14.4)
[2018-10-24 14:29] LABS: ALBUMIN 4.2 g/dL (3.5-5.0); ANION GAP 15.5 mmol/L (8-16); CALCIUM 11.3 mg/dL (8.4-10.2); CREATININE, SERUM 1.4 mg/dL (0.72-1.25); POTASSIUM 3.5 mmol/L (3.5-5.1)
[2018-10-24] MEDS ORDERED: CLINDAMYCIN PHOS 900MG/ 50ML 50 ML IV STA (15:29)
[2018-10-24] MEDS ORDERED: CLINDAMYCIN HC300 MG PO (15:31)
[2018-10-24] MEDS ORDERED: HYDROMORPHONE 2MG/ML 2 MG/ML ML IM ONE (18:15)
[2018-10-24] MEDS ORDERED: ONDANSETRON HCL INJ 2MG/ML 2ML 2 MG/ML VIAL ONE (18:31)
== END 2018-10-24 16:16 | disposition home or self-care (01) ==
LOC: ER 10:08
DX: M79.672 Pain in left foot (principal); L03.116 Cellulitis of left lower limb; I10 Essential (primary) hypertension; E11.9 Type 2 diabetes mellitus without complications; E78.5 Hyperlipidemia, unspecified; F17.210 Nicotine dependence, cigarettes, uncomplicated
CPT/HCPCS: 36415; 73630; 80053; 85025; 99283; J1170; J2405

== ENCOUNTER 2023-06-09 13:34 | Emergency (ER) | payer MEDICARE ==
[~2023-06-09] VITALS: Ht 177.8 cm; Wt 97.5 kg
[~2023-06-09 13:34] MED LIST changes: +CLINDAMYCIN HC300 MG PO
[2023-06-09 13:39] VITALS: O2SAT 97
[2023-06-09] MEDS ORDERED: CLINDAMYCIN HC150 MG PO (13:44)
== END 2023-06-09 14:16 | disposition home or self-care (01) ==
LOC: ER 13:50
DX: R60.9 Edema, unspecified (principal); L03.116 Cellulitis of left lower limb; L03.115 Cellulitis of right lower limb; I10 Essential (primary) hypertension; E11.9 Type 2 diabetes mellitus without complications; E78.5 Hyperlipidemia, unspecified
CPT/HCPCS: 99283